=== PATIENT | female | born 1985 | race Caucasian/White ===

== ENCOUNTER 2023-09-12 12:41 | Outpatient (CLI) | payer OTHER, SELFPAY ==
[2023-09-12 13:03] LABS: Hematocrit 34.9 % (37.0-47.0); Hemoglobin 10.2 g/dL (12.0-15.0); Mean Corpuscular HGB Conc 29.2 g/dl (32-36); Mean Corpuscular Hemoglobin 23.4 pg (26-34); Mean Corpuscular Volume 80.2 fl (80-100); Platelet Count Result 398 k/mm3 (150-375); Red Blood Count 4.35 M/mm3 (4.2-5.4); Red Cell Distribution Width 17.7 % (11.5-14.5)
== END 2023-09-12 12:42 | disposition home or self-care (01) ==
PROVIDERS: PCP Internal Medicine; Visit Provider Obstetrics & Gynecology
DX: Z30.2 Encounter for sterilization (principal)
CPT/HCPCS: 36415; 85027

== ENCOUNTER 2023-09-19 01:26 | Day surgery (SDC) | payer OTHER, SELFPAY ==
[2023-09-04 15:44] VITALS: BMI 30.1
--- NOTE | 2023-09-04 16:00 | PC.NURSE ---
Report to the Outpatient Waiting Room, entrance under the green pavilion located off [facility], at time 6am on date 09/19/2023. Planned Procedure Time: 7:30am. Time changes happen often and if your time is changed the preop area will call you the afternoon before. - You and your visitor will be asked to self-screen and do not enter if you have any COVID symptoms. - A mask is optional within the hospital at this time. Patients may have clear liquids (water, carbonated beverages, clear teas, apple juice) until 3 hours prior to surgery with a maximum of 20 ounces. - No food from midnight until time of surgery Take the following medications with a SIP of water the morning of surgery: desvenlataxine, gabapentin DO NOT STOP ANY OF YOUR OTHER PRESCRIPTION MEDICATIONS PRIOR TO SURGERY ?EXCEPT THE FOLLOWING Please no make-up, nail lithuanian, hairspray, perfume, deodorant, or body powder the day of surgery. No jewelry (including any body piercings) or valuables the day of surgery, leave them at home. Please take a shower or bath the night before, or the morning of, surgery with an antibacterial soap. Wear comfortable, loose fitting clothing. Children are encouraged to wear pajamas. - Jewelry must be removed prior to entering the operating room. Rings and piercings that are not removed may be cut off. - The hospital will not accept responsibility for valuables. - Please leave all valuables, including medications, at home the day of surgery. If you are going home after surgery, a licensed explosives truck driver must drive you home. - NO public transportation without another adult if you receive anesthesia. - We recommend that an adult stay with you for 24 hours following discharge. - We also recommend that you do not drive, make important decision, drink alcoholic beverages, or take any drugs that were not prescribed by your health care provider for at least 24 hours after your discharge time. For Pediatric surgeries, we recommend two adults accompany the child home. Follow any additional instructions given to you from your surgeon. If you or anyone in your household have experienced Covid symptoms in the past week, please notify your surgeon or the nurse liaison at the phone number below for possible testing. Telephone instructions given to Marlene Worley and asked if any additional questions and then verbalized understanding. Patient advised to call surgeon office or pre surgery nurse liaison [phone] if any additional questions.
--- NOTE | 2023-09-16 15:34 | PM.IMHP ---
H&P: HPI History of Present Illness Date/Time: 09/16/23 15:34 38-year-old female 3 para 3003 presents for permanent sterilization. She is not currently using any type of contraception and does not desire any reversible forms though they have been discussed. Cycles are regular and consistent and not an issue for her. She has had 3 prior sections and a laparoscopic cholecystectomy, no other significant abdominal or pelvic surgeries. We have discussed the permanence failure rate increased risk of ectopic and regret and she strongly desires to proceed with permanent sterilization in the form of bilateral salpingectomy. Chief Complaint: Undesired fertility Review of Systems Review of Systems: All systems reviewed & are unremarkable except as noted in HPI and below PMFSH Past Medical History Medical History Abnormal Pap smear of cervix 2006- lgsil +HPV, 03/31/2008 Lgsil+HPV 2008- lgsil -hpv Anxiety Asthma Chlamydia Encounter for IUD insertion 10/01/05 Mirena insertion 05/14/12 Paragard insertion 08/13/13 Mirena insertion Encounter for IUD removal 04/08/06 Mirena removal 01/22/13 Paragard removal 01/28/14 Mirena removal Encounter for screening examination for sexually transmitted disease History of depression History of high cholesterol HSV-2 infection Sexually transmissible disease Trichomonas vaginalis (TV) infection Surgical History Surgical History History of delivery 03/28/05 primary c/s--cord wrapped 02/14/10 02/27/12 non-reassuring heart tones History of cholecystectomy 02/29/20 History of colposcopy with cervical biopsy 12/24/06 LGSIL--benign 04/13/08 hyperkeratosis LGSIL CIN1 History of incision and drainage 04/18/09 vulvar abscess 09/19/10 labial abscess Family History Family History Mother Diabetes mellitus Hypertension Colon cancer Skin cancer Heart disease Lupus erythematosus Grandparent Colon cancer Father Chronic obstructive lung disease Chronic hepatitis Social History Social History Smoking packs per day: 0.5 Smoking cigarettes per day: 10.0 Years smoked: 20 Smoking pack-years: 10.00 Smoking status: Current every day smoker Tobacco type: cigarettes Second hand tobacco smoke exposure: Yes Alcohol intake: unknown Alcohol use details: rarely Substance use: current Substance use type: marijuana Other substance usage details: Once every two days Last use: 09/04/2023 Do You Feel Safe in your Home?: Yes Lack of Transportation: No Lack of Food: Sometimes True Current Housing: I Have Housing Concerned About Future Housing: No Difficulty Paying Gas/Electric Bills: No Difficulty Paying for Meds: No Currently Unemployed: No Education: Associate Degree Difficulty w/ Childcare or Family Care: No Living arrangements: with family Additional living arrangements comments: with kids Occupation/Education: occupation 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 Gender identity (if verbalized by the patient): Female Sexual Orientation (if Verbalized by the Patient): Straight or Heterosexual Spiritual care concerns: No Meds Home Medications and Allergies Home Medications Medication Instructions Recorded Confirmed Type gabapentin 300 mg capsule 300 mg PO DAILY 02/24/20 09/05/23 History desvenlafaxine succinate 50 mg 50 mg PO DAILY 07/17/23 09/05/23 History tablet,extended release 24 hr (Pristiq) Allergies Allergy/AdvReac Type Severity Reaction Status Date / Time No Known Allergies Allergy Mild Verified 09/04/23 15:42 Exam Const: General: cooperative and healthy appearing Resp: Effort & Inspection: normal respiratory effort Auscultation:
[2023-09-19] VITALS (9 sets, daily range): BP systolic 118–130; BP diastolic 56–75; PULSE 60–99; RESP 12–16; TEMP 36.2–36.3; O2SAT 97–100; BMI 29.8
[2023-09-19] MEDS: LACTATED RINGERS 1,000 ML 30 ML IV CONT (06:40)
[2023-09-19] MEDS: SCOPOLAMINE 1 MG PATCH 1 PATCH TRANSDERM (06:56)
[2023-09-19] MEDS: KETOROLAC 15 MG/ML VIAL (*BKC) IV PUSH (06:56)
[2023-09-19] MEDS: ACETAMINOPHEN 500 MG TABLET 1000 MG PO (06:56)
--- NOTE | 2023-09-19 07:12 | WPDANESEPPF ---
Anes - Initial Pre Proc Eval Procedure: Operation Date: 09/19/23 07:30 Proposed Procedures p Bilateral Laparoscopic Salpingectomy - Chato Nice MD Date/Time: 09/19/23 07:12 Surgeon: Chato Nice MD Pre Op Diagnosis: Desire Sterilization Patient Data Age: 38 Gender: F Height: 1.6 m Weight: 77.11 kg Allergies Allergy/AdvReac Type Severity Reaction Status Date / Time No Known Allergies Allergy Mild Verified 09/04/23 15:42 Home Medications Medication Instructions Recorded Confirmed Type gabapentin 300 mg capsule 300 mg PO DAILY 02/24/20 09/05/23 History desvenlafaxine succinate 50 mg 50 mg PO DAILY 07/17/23 09/05/23 History tablet,extended release 24 hr (Pristiq) Patient hx anesthesia problems: none Family hx anesthesia problems: none Results Review: All pre-operative results and documents have been reviewed as part of the pre-operative evaluation. [facility] Past Medical History Medical History Abnormal Pap smear of cervix 2006- lgsil +HPV, 03/31/2008 Lgsil+HPV 2008- lgsil -hpv Anxiety Asthma Chlamydia Encounter for IUD insertion 10/01/05 Mirena insertion 05/14/12 Paragard insertion 08/13/13 Mirena insertion Encounter for IUD removal 04/08/06 Mirena removal 01/22/13 Paragard removal 01/28/14 Mirena removal Encounter for screening examination for sexually transmitted disease History of depression History of high cholesterol HSV-2 infection Sexually transmissible disease Trichomonas vaginalis (TV) infection Surgical History Surgical History History of delivery 03/28/05 primary c/s--cord wrapped 02/14/10 02/27/12 non-reassuring heart tones History of cholecystectomy 02/29/20 History of colposcopy with cervical biopsy 12/24/06 LGSIL--benign 04/13/08 hyperkeratosis LGSIL CIN1 History of incision and drainage 04/18/09 vulvar abscess 09/19/10 labial abscess Family History Family History Mother Diabetes mellitus Hypertension Colon cancer Skin cancer Heart disease Lupus erythematosus Grandparent Colon cancer Father Chronic obstructive lung disease Chronic hepatitis Social History Social History Smoking packs per day: 0.5 Smoking cigarettes per day: 10.0 Years smoked: 20 Smoking pack-years: 10.00 Smoking status: Current every day smoker Tobacco type: cigarettes Second hand tobacco smoke exposure: Yes Alcohol intake: unknown Alcohol use details: rarely Substance use: current Substance use type: marijuana Other substance usage details: Once every two days Last use: 09/04/2023 Do You Feel Safe in your Home?: Yes Lack of Transportation: No Lack of Food: Sometimes True Current Housing: I Have Housing Concerned About Future Housing: No Difficulty Paying Gas/Electric Bills: No Difficulty Paying for Meds: No Currently Unemployed: No Education: Associate Degree Difficulty w/ Childcare or Family Care: No Living arrangements: with family Additional living arrangements comments: with kids Occupation/Education: occupation 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
--- NOTE | 2023-09-19 07:25 | WPDHPUPDATE1 ---
History and Physical Update Update Date/Time: 09/19/23 07:25 History and Physical has been reviewed, including an updated exam of the patient. There are NO changes in the patient's condition. Risks, benefits, and alternatives have been discussed and questions answered. Patient agrees to proceed with procedure.
--- NOTE | 2023-09-19 08:10 | W.PM.PROC2 ---
Procedure Note - Detailed Date of Procedure 09/19/23 Pre-op Diagnosis Desire Sterilization Post-op Diagnosis Same Procedure Performed Laparoscopic bilateral salpingectomy Surgeon Chato Nice MD Anesthesia General Findings Uterus tubes ovaries without abnormality Description of Procedure Patient prepped and draped in usual manner for this procedure. Camera port was placed under direct visualization. Lateral ports were then also placed in the lower abdomen. Pelvis was evaluated with findings as noted above. Mesial salpinx was cauterized and cut using LigaSure and tubes removed without difficulty. There was no bleeding and this point the gas was allowed to escape trocars removed incisions approximated 4-0 Monocryl and the patient was sent to recovery room in stable condition. Estimated Blood Loss 10 Drains No Packing No Pathology Yes Complications No immediate complications Condition Stable Disposition PACU [facility] Billing Surgery - Charge Forward: Surgery Billing
[2023-09-19] MEDS: fentaNYL CITRATE INJ (*CRX) 100 MCG/2 ML VIAL 25 MCG IV PUSH ×4 (08:28→08:48)
[2023-09-19] MEDS: oxyCODONE HCL (*CRX) 5 MG TAB IR PO (09:38)
== END 2023-09-19 10:05 | disposition home or self-care (01) ==
PROVIDERS: PCP Internal Medicine; Visit Provider Obstetrics & Gynecology
PROC: (CPT 49320; principal; 2023-09-19 07:30)
DX: Z30.2 Encounter for sterilization (principal); N83.8 Other noninflammatory disorders of ovary, fallopian tube and broad ligament; F17.210 Nicotine dependence, cigarettes, uncomplicated; F12.90 Cannabis use, unspecified, uncomplicated; F41.9 Anxiety disorder, unspecified
CPT/HCPCS: 58661; 88302; A9270; J1100; J1885; J2250; J2405; J2704; J3010; J7120

== ENCOUNTER 2024-10-01 14:19 | Outpatient (CLI) | payer OTHER, SELFPAY ==
--- NOTE | ~2024-10-01 | MM_ITS ---
EXAMINATION: MM screening hieu BI w matilda HISTORY: Screening TECHNIQUE: Craniocaudal and mediolateral oblique 3-D tomosynthesis images were obtained and synthetic 2-D images were generated. CAD analysis was submitted and interpreted. COMPARISON: No prior mammogram is available for comparison at this institution. BREAST PARENCHYMAL COMPOSITION: Not Dense: The breasts are almost entirely fatty. FINDINGS: There is no mammographic evidence for malignancy in the left breast. There is a small mass in the upper outer quadrant of the right breast with increased density centrally, atypical for lymph node. No suspicious calcifications or architectural distortion. IMPRESSION: 1. Small right breast mass, upper outer quadrant, middle third. 2. Additional mammographic views and possible breast ultrasound are recommended. BI-RADS Category 0: Incomplete: Needs additional imaging evaluation. Reviewed, dictated and finalized at location A. IMPRESSION: 1. Small right breast mass, upper outer quadrant, middle third. 2. Additional mammographic views and possible breast ultrasound are recommended . BI-RADS Category 0: Incomplete: Needs additional imaging evaluation.
--- OUTSIDE RECORDS SUMMARY | 2024-10-01 15:31 | XMS_ITS | Clinical Summary ---
Author Organization [facility] Medical Office Building [facility] Address [address] [place] [address] Care Team Providers Care Assistant Warehouse Manager Name Role Phone Marbin Torrez MD Primary Care Provider [phone] Allergies No known active allergies Medications gabapentin (NEURONTIN) 300 mg capsule TK 1 C PO TID 09/23/2019 Active venlafaxine XR (EFFEXOR-XR) 150 mg 24 hr capsule TK 1 C PO QAM WF 09/23/2019 Active Active Problems Problem Noted Date Diagnosed Date Family hx of colon cancer 10/02/2019 Overview (10/02/2019): Added automatically from request for surgery [id number] Encounters Date Type Department Care Team Description 07/20/2024 Hospital Encounter [facility] [id number] [phone] Osmar Miranda, from Last 3 Months Surgical History Surgery Date Site/Laterality Comments SECTION x3 CHOLECYSTECTOMY WISDOM TOOTH EXTRACTION Medical History Medical History Date Comments Mass of colon with bleeding Depression Social History Tobacco Use Types Packs/Day Years Used Date Smoking Tobacco: Never Assessed AUDIT-C Answer Date Recorded Q1: How often do you have a drink containing alcohol? Monthly or less 10/02/2022 Q2: How many drinks containi ng alcohol do you have on a typical day when you are drinking? Patient does not drink Q3: How often do you have si x or more drinks on one occasion? Never 10/02/2022 Personal Safety Answer Date Recorded Have you ever been in or are you currently in a harmful physical or emotional relationship or is someone making you feel afraid or unsafe? Denies 10/02/2022 Comments Unknown Sex and Gender Information Value Date Recorded Sex Assigned at Not on file Legal Sex Female 2:38 PM CDT Gender Identity Not on file Sexual Orientation Not on file Obstetrics History Last Filed Vital Signs Vital Sign Reading Time Taken Comments Blood Pressure 98/65 10/02/2022 11:07 AM CDT Pulse 67 10/02/2022 11:07 AM CDT Temperature 36.5 C (97.7 F) 10/02/2022 10:42 AM CDT Respiratory Rate 15 10/02/2022 11:07 AM CDT Oxygen Saturation 100% 10/02/2022 11:07 AM CDT Inhaled Oxygen Concentration - - Weight 74.8 kg (165 lb) 09/19/2022 1:20 PM CDT Height 162.6 cm (5' 4 ) 09/19/2022 1:20 PM CDT Body Mass Index 28.32 09/19/2022 1:20 PM CDT Plan of Treatment Health Maintenance Due Date Last Done Comments Breast Cancer Screening-Mammogram 1984 Cervical Cancer Screening 1984 Depression Screening 1984 Hepatitis C Screening 1984 Varicella Vaccines (1 of 2 - 13+ 2-dose series) 1997 Hepatitis B Screening 2002 Regular Well Visit/Exam 18-64 2002 Influenza Vaccine (#1) 2024 DTaP/Tdap/Td Vaccine (2 - Td or Tdap) 03/24/2024 03/24/2014 HPV Vaccines Aged Out No longer eligi ble based on patient's age to complete this topic Pneumococcal vaccine <65 Aged Out No longer eligible based on patient's age to complete this topic Insurance [facility] Care Teams Assistant Warehouse Manager Relationship Specialty Start Date End Date Marbin Torrez MD [address] [place] [address] PCP - General Internal Medicine 09/20/22
--- OUTSIDE RECORDS SUMMARY | 2024-10-01 15:31 | XMS_ITS | Referral Summary ---
Author Organization [facility] Medical Office Building B Address [address] [place] [address] Care Team Providers Care Contract Designer Name Role Phone Marbin Torrez MD Primary Care Provider [phone] Encounters Date Type Department Care Team Description 07/20/2024 Hospital Encounter [facility] [address] [place] [address] Osmar Miranda, DO from Last 3 Months Allergies No known active allergies Medications gabapentin (NEURONTIN) 300 mg capsule TK 1 C PO TID 09/23/2019 Active venlafaxine XR (EFFEXOR-XR) 150 mg 24 hr capsule TK 1 C PO QAM WF 09/23/2019 Active Active Problems Problem Noted Date Diagnosed Date Family hx of colon cancer 10/02/2019 Overview (10/02/2019): Added automatically from request for surgery [id number] Social History Tobacco Use Types Packs/Day Years [...] on file Sexual Orientation Not on file Last Filed Vital Signs Vital Sign Reading [...] 09/19/2022 1:20 PM CDT Plan of Treatment Not on file Insurance [facility] Care Teams Contract Designer Relationship Specialty Start Date End Date Marbin Torrez MD [address] [place] [address] PCP - General Internal Medicine 09/20/22
--- OUTSIDE RECORDS SUMMARY | 2024-10-01 15:31 | XMS_ITS | Continuity of Care Document ---
Author Organization [facility]ly [facility] Address [address] [place] [address] [address] [place] [address] Phone Care Team Providers Care Hasher Machine Operator Name Role Phone [facility] Unavailable Unavail able Dallas Brock Unavailable Unavailable Advance Directives Directive Yes / No Effective Date File Name No Information Encounters Encounter Description Practice Location Reason(s) For Visit Diagnoses Date Provider Providers Copied on Encounter [facility], [address], [place], [place], [id number], [place] tel:[phone] [facility] No Information [facility] [address] [facility], [address], [place], [place], [id number] , [place]. tel:[phone] Referring Provider: Jed Mojica, [address] [place] [address] [address], [place], [address]. tel:[phone] sulting Provider: Dallas Brock, [address] [place] [address], [place], [address]. tel:[phone] Family History Family Member Type Diagnosis Age At Onset No Information Payers Payer name Insurance type Covered democrat ID Authoriza tion(s) No Information Social History Type Description Quantity Date Captured Comments Sex Female Smoking Status No Information Chief Complaint And Reason For Visit No Information Reason For Referral Reason For Referral No Information History Of Present Illness Encounter Date Complaint History Of Prese nt Illness No Information Functional Status Date Functional Assessmen t No Information Instructions Date Instruction Additional Infor mation No Information Assessments Type Assessment Date No Information Patient Care Teams Name Effective Dates (start - stop) Status Members No Information
--- OUTSIDE RECORDS SUMMARY | 2024-10-01 15:31 | XMS_ITS | Patient Health Record ---
Author Organization [facility] Address [address] [place] [address] Care Team Providers Care Catering Operations Manager Name Role Phone Julian Rivera Primary Care Provider Marbin Torrez Unavailable [phone] Allergies No Known Allergies Reason For Referral No Information Medications Medication SIG (Take, Route, Frequency, Duration) Notes Start Date End Date Status Aspirin 81 81 MG 1 tablet Orally Once a day Active Cholecalciferol 1.25 MG (16495 UT) 1 capsule Orally once per week for 90 days Active Atorvastatin Calcium 40 MG 1 tablet Oral ly Once a day for 30 days Active Isosorbide Mononitrate ER 30 MG 1 tablet in the morning Orally Once a day for 30 days Active Senna 8.6 MG 2 tablets at bedtime as needed Orally Once a day for 30 day(s) 06/14/2021 Active diazePAM 5 MG 1 tablet as needed f or panic attacks Orally Once a day for 15 days 07/28/2024 Active Desvenlafaxine Succinate ER 50 MG 1 tablet in the morning Orally Once a day for 90 days Active Phentermine HCl 37.5 MG 1 capsule Orally Once a day for 30 days 09/16/2024 Active Gabapentin 600 MG 1 tablet in the morn ing Orally Once a day for 90 days Active buPROPion HCl ER (XL) 300 MG 1 tablet in the morning Orally Once a day for 90 days Active Gabapentin 300 MG 1 tablet in the afternoon Orally Once a day for 90 days Active Social History Tobacco Use: Social History Observation Description Date Details (start date - stop date) Former Smoker NA - NA Sex Assigned At : Social History Observation Description Sex Assigned At Female Tobacco Control (Standard) Question Answer Notes Tobacco use: Former smoker Section Notes: Problems Problem Type SNOMED Code ICD Code Onset Dates Problem Status W/U Status Risk Notes Problem Tobacco user (430238047) Nicotine dependence, unspecified, uncomplicated (F17.200) Active confirmed Problem 63979929 Vitamin D deficiency (E55.9) Active confirmed Problem Generalized anxiety disorder (91212884) COREY (generalized anxiety disorder) (F41.1) 03/09/20 22 Active confirmed Problem Overweight (380034734) Over weight (E66.3) Active confirmed Problem 43233526 Chronic fatigue (R53.82) Active confirmed Problem Major depressive disorder (295755434) MDD (major depressive disorder) (F32.9) 03/09/20 22 Active confirmed Problem Grief (981209910) Grief (F43.20) Active confirm ed Problem 199483588301142 Obesity (BMI 30.0-34.9) (E66.9) Active confirmed Problem Obesity (364629304) Obesity (BMI 30-39.9) (E66.9) Active confirmed Problem Anxiety state (004344406) Anxiety disorder, unspecified type (F41.9) 03/09/20 22 Active confirmed Problem Major depression in remission (41094578) Major depression in remission (F32.5) Active confirmed Problem Tobacco use (320476532) Tobacco use disorder (F17.200) Active confirmed Problem Obesity (408418968) Obesity, unspecified classification, unspecified obesity type, unspecified whether serious comorbidity present (E66.9) Active confirmed Problem 637286802 Seasonal allergic rhinitis, unspecified trigger (J30.2) Active confirmed Vital Signs Heart Rate 75 /min 09/16/2024 Respiratory Rate 16 /min 09/16/2024 Oximetry 98 % 09/16/2024 Blood pressure diastolic 60 mm Hg 09/16/2024 Height 63 in 09/16/2024 Blood pressure systolic 108 mm Hg 09/16/2024 Weight 188.8 lbs 09/16/2024 BMI 33.44 kg/m2 09/16/2024 Encounters Encounter Location Date Provider Diagnosis [facility] [address] [place] [place] [address] 12/09/2023 Julian Rivera [address] [place] [address] 06/08/2024 Julian Rivera Major depression in remission F32.[address] [address] 07/22/2024 Julian Rivera [address] [address] 07/24/2024 Julian Rivera Anxiety disorder, unspecified type F41.[address] [address] 03/12/2024 Julian Rivera Major depression in remission F32.5 ; Grief F43.20 ; Chronic fatigue R53.82 and COREY (generalized anxiety disorder) F41.[address] [address] 09/16/2024 Marbin Torrez Over weight E66.3 an d Chest pain R07.[address] [address] 08/13/2024 Marbin Torrez Chest pain R07.9 ; Chronic constipation K59.09 ; Obesity (BMI 30-39.9) E66.9 ; Nicotine dependence, unspecified, uncomplicated F17.200 ; Dietary counseling Z71.3 and Nutritional counseling Z71.[address] [address] 06/17/2024 Julian Rivera Major depression in remission F32.5 ; COREY (generalized anxiety disorder) F41.1 and Chronic fatigue R53.[address] [address] 12/16/2023 Julian Rivera Major depression in remission F32.5 ; COREY (generalized anxiety disorder) F41.1 and Chronic fatigue R53.[address] [address] 08/18/2024 Julian Rivera Major depression in remission F32.5 ; COREY (generalized anxiety disorder) F41.1 ; Vitamin D deficiency E55.9 and Chronic fatigue R53.82 Assessments Encounter Date Diagnosis (ICD Code) Assessment Notes Treatment Notes Treatment Clinical Notes Section Notes 03/12/2024 Grief (ICD-10 - F43.20) Client denies depression and rates her PHQ 9 at zero though states she is having intense grief due to recent of her best friend. Discussed resources of grief therapy, crisis line. Client requests Wellbutrin increase to aide with fatigue. No other treatment plan changes needed. Client requests three month f/u and states will call for earlier f/u if needed. 03/12/2024 Major depression in remission (ICD-10 - F32.5) Client denies depression and rates her PHQ 9 at zero though states she is having intense grief due to recent of her best friend. Discussed resources of grief therapy, crisis line. Client requests Wellbutrin increase to aide with fatigue. No other treatment plan changes needed. Client requests three month f/u and states will call for earlier f/u if needed. 06/08/2024 Major depression in remission (ICD-10 - F32.5) 07/24/2024 Anxiety disorder, unspecified type (ICD-10 - F41.9) 08/13/2024 Chest pain (ICD-10 - R07.9) WITH NL CORONARIES 08/13/2024 Chronic constipation (ICD-10 - K59.09) 12/16/2023 Major depression in remission (ICD-10 - F32.5) Client doing well overall with controlled depression and anxiety. However, client continues to c/o fatigue. Did not f/u with primary care in regard to low iron lab results nor start supplementat ion. Discussed this with client and suggested client start taking MVI fortified with iron and make apt with PCP. Discussed a trial of low dose bupropion to assist with fatigue and client would like to try this. No other treatment plan changes. 08/18/2024 Major depression in remission (ICD-10 - F32.5) Client doing well on current tx plan and does not want changes at this time. 06/17/2024 Major depression in remission (ICD-10 - F32.5) Client doing well. Has had emotional blunting and fatigue greatly improved by bupropion. No changes needed. Encouraged client to set up PCP appt (has not seen in over 2 years). Is taking daily multivitamin and vitamin D supplement a few times a week. Discussed if has not seen PCP by next appt this provider will write for yearly blood work. 09/16/2024 Chest pain (ICD-10 - R07.9) SMALL CORONARIES W/O OBSTRUCTION TO FLOW BUT WITH PRESUMED CORONARY SPASM 09/16/2024 Over weight (ICD-10 - E66.3) DISCUSSED ADDING RESISTANCE TRAINING TO HER CARDIO. DISCUSSED WIEGHTS VS BODY WEIGHT EXERCISES. 06/17/2024 COREY (generalized anxiety disorder) (ICD-10 - F41.1) Client doing well. Has had emotional blunting and fatigue greatly improved by bupropion. No changes needed. Encouraged client to set up PCP appt (has not seen in over 2 years). Is taking daily multivitamin and vitamin D supplement a few times a week. Discussed if has not seen PCP by next appt this provider will write for yearly blood work. 08/18/2024 COREY (generalized anxiety disorder) (ICD-10 - F41.1) Client doing well on current tx plan and does not want changes at this time. 03/12/2024 Chronic fatigue (ICD-10 - R53.82) Client denies depression and rates her PHQ 9 at zero though states she is having intense grief due to recent of her best friend. Discussed resources of grief therapy, crisis line. Client requests Wellbutrin increase to aide with fatigue. No other treatment plan changes needed. Client requests three month f/u and states will call for earlier f/u if needed. 08/13/2024 Obesity (BMI 30-39.9) (ICD-10 - E66.9) INFO SENT ON MEDITERRANEAN DIET. CONTINUE LOW IMPACT EXERCISE 12/16/2023 COREY (generalized anxiety disorder) (ICD-10 - F41.1) Client doing well overall with controlled depression and anxiety. However, client continues to c/o fatigue. Did not f/u with primary care in regard to low iron lab results nor start supplementat ion. Discussed this with client and suggested client start taking MVI fortified with iron and make apt with PCP. Discussed a trial of low dose bupropion to assist with fatigue and client would like to try this. No other treatment plan changes. 12/16/2023 Chronic fatigue (ICD-10 - R53.82) Client doing well overall with controlled depression and anxiety. However, client continues to c/o fatigue. Did not f/u with primary care in regard to low iron lab results nor start supplementat ion. Discussed this with client and suggested client start taking MVI fortified with iron and make apt with PCP. Discussed a trial of low dose bupropion to assist with fatigue and client would like to try this. No other treatment plan changes. 08/13/2024 Nicotine dependence, unspecified, uncomplicated (ICD-10 - F17.200) 03/12/2024 COREY (generalized anxiety disorder) (ICD-10 - F41.1) Client denies depression and rates her PHQ 9 at zero though states she is having intense grief due to recent of her best friend. Discussed resources of grief therapy, crisis line. Client requests Wellbutrin increase to aide with fatigue. No other treatment plan changes needed. Client requests three month f/u and states will call for earlier f/u if needed. 08/18/2024 Vitamin D deficiency (ICD-10 - E55.9) Client doing well on current tx plan and does not want changes at this time. 06/17/2024 Chronic fatigue (ICD-10 - R53.82) Client doing well. Has had emotional blunting and fatigue greatly improved by bupropion. No changes needed. Encouraged client to set up PCP appt (has not seen in over 2 years). Is taking daily multivitamin and vitamin D supplement a few times a week. Discussed if has not seen PCP by next appt this provider will write for yearly blood work. 08/18/2024 Chronic fatigue (ICD-10 - R53.82) Client doing well on current tx plan and does not want changes at this time. 08/13/2024 Dietary counseling (ICD-10 - Z71.3) 08/13/2024 Nutritional counseling (ICD-10 - Z71.3) 12/16/2023 Other Discussed sleep hygiene and caffeine intake with encouragement to limit electronic devices an hour before bed and to limit caffeine after 3:00pm. Exercise benefits for mood and health discussed. Psychoeducation regarding psychiatric illness provided. Client was educated about risks and benefits of medication, alternatives to medication, off label uses of medication, suicidal ideation with SSRIs, self-administrat ion and compliance with medication along with how to safely store medication. Verbal informed consent obtained. Client agrees to return sooner if symptoms worsen or if suicidal or homicidal ideations occur. Client has the phone number to the 24-hour crisis line at [facility]. Questions addressed. Client verbalized understanding of all information and is agreeable to treatment plan. Client doing well overall with controlled depression and anxiety. However, client continues to c/o fatigue. Did not f/u with primary care in regard to low iron lab results nor start supplementat ion. Discussed this with client and suggested client start taking MVI fortified with iron and make apt with PCP. Discussed a trial of low dose bupropion to assist with fatigue and client would like to try this. No other treatment plan changes. 03/12/2024 Other Discussed sleep hygiene and caffeine intake with encouragement to limit electronic devices an hour before bed and to limit caffeine after 3:00pm. Exercise benefits for mood and health discussed. Psychoeducation regarding psychiatric illness provided. Client was educated about risks and benefits of medication, alternatives to medication, off label uses of medication, suicidal ideation with SSRIs, self-administrat ion and compliance with medication along with how to safely store medication. Verbal informed consent obtained. Client agrees to return sooner if symptoms worsen or if suicidal or homicidal ideations occur. Client has the phone number to the 24-hour crisis line at [facility]. Questions addressed. Client verbalized understanding of all information and is agreeable to treatment plan. Client denies depression and rates her PHQ 9 at zero though states she is having intense grief due to recent of her best friend. Discussed resources of grief therapy, crisis line. Client requests Wellbutrin increase to aide with fatigue. No other treatment plan changes needed. Client requests three month f/u and states will call for earlier f/u if needed. 06/17/2024 Other Discussed sleep hygiene and caffeine intake with encouragement to limit electronic devices an hour before bed and to limit caffeine after 3:00pm. Exercise benefits for mood and health discussed. Psychoeducation regarding psychiatric illness provided. Client was educated about risks and benefits of medication, alternatives to medication, off label uses of medication, suicidal ideation with SSRIs, self-administrat ion and compliance with medication along with how to safely store medication. Verbal informed consent obtained. Client agrees to return sooner if symptoms worsen or if suicidal or homicidal ideations occur. Client has the phone number to the 24-hour crisis line at [facility]. Questions addressed. Client verbalized understanding of all information and is agreeable to treatment plan. Client doing well. Has had emotional blunting and fatigue greatly improved by bupropion. No changes needed. Encouraged client to set up PCP appt (has not seen in over 2 years). Is taking daily multivitamin and vitamin D supplement a few times a week. Discussed if has not seen PCP by next appt this provider will write for yearly blood work. 08/18/2024 Other Discussed sleep hygiene and caffeine intake with encouragement to limit electronic devices an hour before bed and to limit caffeine after 3:00pm. Exercise benefits for mood and health discussed. Psychoeducation regarding psychiatric illness provided. Client was educated about risks and benefits of medication, alternatives to medication, off label uses of medication, suicidal ideation with SSRIs, self-administrat ion and compliance with medication along with how to safely store medication. Verbal informed consent obtained. Client agrees to return sooner if symptoms worsen or if suicidal or homicidal ideations occur. Client has the phone number to the 24-hour crisis line at [facility]. Questions addressed. Client verbalized understanding of all information and is agreeable to treatment plan. Client doing well on current tx plan and does not want changes at this time. Plan Of Treatment Pending Test Test Name Order Date AST (SGOT) 02/08/2016 Future Test Test Name Order Date Vitamin B12 and Folate 07/10/2023 Iron and TIBC 07/10/2023 CBC With Differential/Platelet 4 Vitamin D, 25-Hydroxy 07/10/2023 TSH+Free T4 07/10/2023 CMP 14 Comprehensive Metabolic Panel* Hemoglobin A1c 07/10/2023 Insurance Providers Payer Name Payer Address Payer Phone Subscriber Number Group Number Insured Name Patient Relationship to Insured Coverage Start Date Coverage End Date [facility] Att Claims Department [address] [place] [id number] [phone] [id number] Marlene Worley Self - patient is the insured 1 [facility] Claims Department [address] [place] [phone] [id number] Marlene Worley Self - patient is the insured 6 8 [facility] Attn Claims Department [address] [place] [phone] [id number] Marlene Worley Self - patient is the insured 8 8 MEDICAID [address] [place] [address] [id number] Marlene Worley Self - patient is the insured 8 9 [facility] Attn Claims Department [address] [facility] [place] [address] [phone] [id number] Marlene Worley Self - patient is the insured 0 [facility] Attn Claims Department [address] [place] [address] [phone] [id number] Marlene Worley Self - patient is the insured 1 Medical (General) History Medical History History ICD Code MDD (major depressive disorder) Obesity (BMI 30.0-34.9) Vitamin D deficiency Anxiety disorder, unspecified type Surgical History Surgery Date(Month/Year) cholestyectomy 02/2020 Hospitalization History Reason Date(Month/Year) [facility] for anxiety 2000
--- OUTSIDE RECORDS SUMMARY | 2024-10-01 15:31 | XMS_ITS | Encounter Summary ---
Author Organization [facility] Healthcare Address [address] [place] [address] Care Team Providers Care Computer Support Specialist Name Role Phone Marbin Torrez MD Primary Care Provider [phone] Encounter Details Date Type Department Care Team (Late st Contact Info) Description 07/20/2024 Hospital Encounter [facility] [address] [place], [place] [id number] [place] [id number] [address] Social History Tobacco Use Types Packs/Day Years [...] on file Sexual Orientation Not on file documented as of this encounter Plan of Treatment Not on file documented as of this encounter Visit Diagnoses Not on filedocumented in this encounter Care Teams Computer Support Specialist Relationship Specialty Start Date End Date Marbin Torrez MD [address] [place] [address] [place] [address] PCP - General Internal Medicine 09/20/22 documented as of this encounter
--- OUTSIDE RECORDS SUMMARY | 2024-10-01 15:31 | XMS_ITS | CONTINUITY OF CARE DOCUMENT ---
Author Name sanjay grace Address Unknown Organization [facility] Address [address] [place] [address] Phone [phone] Care Team Providers Care Lastex Thread Winder Name Role Phone Dahiana Davenport MD Unavailable [phone] Dahiana Davenport MD Unavailable [phone] PROBLEMS Condition Status Date Provider Notes Chest pain active Maria Ines Beverly NP ALLERGIES No Known Drug Allergies HISTORY OF MEDICATION USE Medication Status Instructions Dates Provider Indications Com ments aspirin 81 mg tablet,delayed release (DR/EC) active Take 1 tablet by mouth once a day Maria Ines Beverly NP isosorbide mononitrate 30 mg tablet extended release 24 hr active Take 1 tablet by mouth once a day Maria Ines Beverly NP atorvastatin 40 mg tablet active TAKE 1 TABLET BY MOUTH EVERY NIGHT DUE FOR FOLLOW UP Maria Ines Beverly NP INSURANCE PROVIDERS Payer name Policy type / Coverage type [facility] [place] (2) Medicaid [id number]
--- OUTSIDE RECORDS SUMMARY | 2024-10-01 15:31 | XMS_ITS | Clinical Summary ---
Author Organization [facility] Address [address] [place] [address] Care Team Providers Care Sensor Specialist Name Role Phone Unavailable Primary Care Provider Unavailabl e Source Comments [facility],non-owned Affiliates and Associated Physician Practices is amultiple site organization consisting of ambulatory clinics and hospital sitesin [place], [place], [place] and [place]. This disclosure is being madepursuant to the Care Everywhere program and may not contain all information available regarding this patient. Last updated 18.[facility] Allergies No known active allergies Medications * Be aware that medications may not be up to date on this document. Alwaysverify current medications with the patient. Venlafaxine HCl (EFFEXOR XR PO) Acti ve GABAPENTIN PO Active triamcinolone acetonide (KENALOG) 0.1 % cream Apply to affected area 3 times daily 30 g 12/23/2019 Active Social History Tobacco Use Types Packs/Day Years Used Date Smoking Tobacco: Every Day Smokeless Tobacco: Never Comments Unknown Sex and Gender Information Value Date Recorded Sex Assigned at Not on file Legal Sex Female [address] Gender Identity Not on file Sexual Orientation Not on file Last Filed Vital Signs Vital Sign Reading Time Taken Comments Blood Pressure 118/62 12/23/2019 2:04 PM CDT Pulse 76 12/23/2019 2:04 PM CDT Temperature 37.1 C (98.7 F) 12/23/2019 2:04 PM CDT Respiratory Rate 15 12/23/2019 2:04 PM CDT Oxygen Saturation 97% 12/23/2019 2:04 PM CDT Inhaled Oxygen Concentration - - Weight 83 kg (183 lb) 12/23/2019 2:04 PM CDT Height 160 cm (5' 3 ) 12/23/2019 2:04 PM CDT Body Mass Index 32.42 12/23/2019 2:04 PM CDT Plan of Treatment Health Maintenance Due Date Last Done Comments LIPID TESTING 1984 MAMMOGRAM 1984 PAP SMEAR 1984 HIV SCREENING 08/13/1999 HEPATITIS C SCREENING 08/08/2002 DTAP/TDAP/TD VACCINES (1 - Tdap) 08/13/2003 HEPATITIS B VACCINE (1 of 3 - 19+ 3-dose series) 08/13/2003 PNEUMOCOCCAL VACCINE (1 of 2 - PCV) 08/13/2003 COVID-19 VACCINE (1 - 2023-2 5 season) 2024 DEPRESSION SCREENING 06/10/2024 INFLUENZA VACCINE (Season Ended) 2025 ZOSTER VACCINE (1 of 2) 2034 HIB VACCINE Aged Out No longer eligi ble based on patient's age to complete this topic HPV VACCINE Aged Out No longer eligi ble based on patient's age to complete this topic MENINGOCOCCAL (Group B) VACC INE SHARED DECISION-MAKING Aged Out No longer eligibl e based on patient's age to complete this topic MENINGOCOCCAL GROUPS A/C/Y/W VACCINE Aged Out No longer eligible b ased on patient's age to complete this topic Insurance [facility] SELF PAY NO INSURANCE Member Subscriber Plan / Payer (Ef fective for All Dates) Name:Meir Marlene R Member ID:Not on file Relation to Subscriber:Not on file Name:MARLENE MUNOZ Subscriber ID:Not on file (Home) Address: [address] [place] [address] Payer ID:Not on file Group ID:Not on file Type:Self Pay Address: [place], [place] [facility] SELF PAY NO INSURANCE Member Subscriber Plan / Payer (Ef fective for All Dates) Name:Meir Marlene R Member ID:Not on file Relation to Subscriber:Not on file Name:MUNOZMARLENE RIOS Subscriber ID:Not on file (Home) Address: [address] [place] [address] Payer ID:Not on file Group ID:Not on file Type:Self Pay Address: [place], [place] [facility] SELF PAY NO INSURANCE Member Subscriber Plan / Payer (Ef fective for All Dates) Name:Marlene Munoz Member ID:Not on file Relation to Subscriber:Not on file Name:MARLENE MUNOZ Subscriber ID:Not on file (Home) Address: [address] [place] [address] Payer ID:Not on file Group ID:Not on file Type:Self Pay Address: [place], [place]
== END 2024-10-01 14:20 | disposition home or self-care (01) ==
PROVIDERS: PCP Internal Medicine; Visit Provider Student in an Organized Health Care Education/Training Program
DX: Z12.31 Encounter for screening mammogram for malignant neoplasm of breast (principal); R92.8 Other abnormal and inconclusive findings on diagnostic imaging of breast
CPT/HCPCS: 77063; 77067

== ENCOUNTER 2025-01-20 13:22 | Outpatient (CLI) | payer OTHER, SELFPAY ==
--- NOTE | ~2025-01-20 | MMUS_ITS ---
EXAMINATION: MM diagnostic hieu RT w matilda, US breast RT limited HISTORY: Follow-up right breast mass TECHNIQUE: Additional 3-D tomosynthesis images of the right breast were performed and synthetic 2-D i mages were generated. CAD analysis was submitted and interpreted. High resolution Limited right breas t ultrasound was performed. COMPARISON: 10/01/2024 BREAST PARENCHYMAL COMPOSITION: Not dense: There are scattered areas of fibroglandular density. FINDINGS: MAMMOGRAPHIC FINDINGS: There is a small low-density mass mid lateral aspect of the right breast, middle third. ULTRASOUND: Limited right breast ultrasound at 9:00, 4 cm from the nipple there is a 3 mm cyst corresponding to t he mammographic finding. No other masses are identified. IMPRESSION: 1. Benign 3 mm right breast cysts at 9:00, 4 cm from the nipple. No evidence for malignancy. 2. Routine yearly screening mammogram and regular clinical breast examination are recommended. BI-RADS Category 2: Benign finding(s). Reviewed, dictated and finalized at location A. IMPRESSION: 1. Benign 3 mm right breast cysts at 9:00, 4 cm from the nipple. No evidence fo r malignancy. 2. Routine yearly screening mammogram and regular clinical breast examination a re recommended. BI-RADS Category 2: Benign finding(s).
--- OUTSIDE RECORDS SUMMARY | 2025-01-20 13:24 | XMS_ITS ---
Author Organization [facility] Address [address] [place] [address] Care Team Providers Care Rating Clerk Name Role Phone Julian Rivera Primary Care Provider Marbin Torrez Unavailable [phone] REASON FOR VISIT f/u, last seen 09/16/24 Social History Sex Assigned At : Social History Observation Description Sex Assigned At Female Encounters Encounter Location Date Provider Diagnosis [address] [place] [address] 12/25/2024 Marbin Torrez Plan Of Treatment No Information Progress Notes * Marlene MUNOZDOB:1985 (39 yo F)Acc No.[id number]:12/25/2024 UNLOCKED PROGRESS NOTE Progress Notes Patient: Marlene WAITE Provider: Ibeth Torrez :1985 A ge:39 Y S ex:Female Date:12/25/2024 Address:[facility] [place] [facility] Pcp:Julian Rivera Subjective: * Chief Complaints: * 1 . F/u, last seen 09/16/24. * Medical History: Objective: * Vitals: Assessment: Plan: * Treatment: * * Electronic signature of Santana Torrez , [id number] on 01/20/2025 at 01:24 PM CDT Sign off status: Pending * Provider: Ibeth Torrez Date: 12/25/2024 Generated for Trenton baca/Derekc/eTransmitting on: 0 01/20/2025 01:24 PM CDT
--- OUTSIDE RECORDS SUMMARY | 2025-01-20 13:24 | XMS_ITS | Continuity of Care Document ---
Author Organization [facility] Address [address] [place] [address] [address] [place] [address] Phone Care Team Providers Care Tank Builder And Erector Name Role Phone [facility] Unavailable Unavail able Dallas Brock Unavailable Unavailable Advance Directives Directive Yes / No Effective Date File Name No Information Encounters Encounter Description Practice Location Reason(s) For Visit Diagnoses Date Provider Providers Copied on Encounter [facility], [address], [place], [place], [id number], [place] tel:[phone] [facility] No Information [facility] [address] [facility], [address], [place], [place], [address] , [place]. tel:[phone] Referring Provider: Jed Mojica, [address] [place] [address] [address], [place], [address]. tel:[phone] sulting Provider: Dallas Brock, [address] [place] [address], [place], [address]. tel:[phone] Family History Family Member Type Diagnosis Age At Onset No Information Payers Payer name Insurance type Covered libertarian ID Authoriza tion(s) No Information Social History [...]
--- OUTSIDE RECORDS SUMMARY | 2025-01-20 13:25 | XMS_ITS | Clinical Summary ---
Author Organization [email or web address] Address [address] [place] [address] Care Team Providers Care Solar Mechanical Engineer Name Role Phone Unavailable Primary Care Provider Unavailabl e Source Comments [email or web address],non-owned Affiliates and Associated Physician Practices is amultiple site organization consisting of ambulatory clinics and hospital sitesin [place], [place] and [place]. This disclosure is being madepursuant to the Care Everywhere program and may not contain all information available regarding this patient. 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 Gender Identity Not on file Sexual Orientation [...] 2:04 PM CDT Height 160 cm (5' 3) 12/23/2019 2:04 PM CDT Body Mass Index 32.42 12/23/2019 2:04 PM CDT Plan of Treatment Health Maintenance Due Date Last Done Comments LIPID TESTING 1985 MAMMOGRAM 1985 HIV SCREENING 08/13/1999 HEPATITIS C SCREENING 08/08/2002 DTAP/TDAP/TD VACCINES (1 - Tdap) 08/13/2003 HEPATITIS B VACCINE (1 of 3 - 19+ 3-dose series) 08/13/2003 PNEUMOCOCCAL VACCINE (1 of 2 - PCV) 08/13/2003 PAP SMEAR 2005 HPV VACCINE (1 - 3-dose SCDM series) 08/13/2011 COVID-19 VACCINE (1 - 2023-2 5 season) 2024 DEPRESSION SCREENING 06/10/2024 INFLUENZA VACCINE (#1) 2025 ZOSTER VACCINE (1 of 2) 2034 HIB VACCINE Aged Out No longer eligi ble based on patient's age to complete this topic MENINGOCOCCAL (Group B) VACC INE SHARED DECISION-MAKING Aged Out No longer eligibl e based on patient's age to complete this topic MENINGOCOCCAL GROUPS A/C/Y/W VACCINE Aged Out No longer eligible b ased on patient's age to complete this topic Insurance [facility] SELF PAY NO INSURANCE Member Subscriber Plan / Payer (Ef fective for All Dates) Name:Marlene Munoz R Member ID:Not on file Relation to Subscriber:Not on file Name:MUNOZMARLENE Subscriber ID:Not on file (Home) Address: [address] [place] [address] Payer ID:Not on file Group ID:Not on file Type:Self Pay Address: [place], [place] [facility] SELF PAY NO INSURANCE Member Subscriber Plan / Payer (Ef fective for All Dates) Name:MunozMarlene haas R Member ID:Not on file Relation to Subscriber:Not on file Name:MARLENE MUNOZ Subscriber ID:Not on file (Home) Address: [address] [place] [address] Payer ID:Not on file Group ID:Not on file Type:Self Pay Address: [place], [place] [facility] SELF PAY NO INSURANCE Member Subscriber Plan / Payer (Ef fective for All Dates) Name:Marlene Munoz Member ID:Not on file Relation to Subscriber:Not on file Name:MARLENE MUNOZ Subscriber ID:Not on file (Home) Address: [address] [place] [address] Payer ID:Not on file Group ID:Not on file Type:Self Pay Address: [place], [place]
--- OUTSIDE RECORDS SUMMARY | 2025-01-20 13:25 | XMS_ITS | Patient Health Record ---
Author Organization [facility] Address [address] [place] [address] Care Team Providers Care Supervisor [place] Name Role Phone Julian Rivera Primary Care Provider Marbin Torrez Unavailable [phone] Allergies No Known Allergies Results Component Value Reference Range Notes Diagnostic Mammogram with po ssible ultrasound - right breast Reviewed date:11/19/2024 10:21:55 AM Interpretation: Performing Lab: Notes/Report: Reason For Referral Reason ENLARGING SKIN LESIO N LEFT THIGH Diagnosis 1 Skin lesion (L98.9) Referral Organization [facility] Referring Provider First Name Marbin Referring Provider Last Name Shan Referring Provider Speciality Internal M edicine Referred Provider Specialty Dermatology General Notes Shalonda COLE, Inez Cristina 01:31:28 PM > Clinical Notes [facility], [address] [place] [address], [address] , [facility], , fax [phone] Referral Priority Routine Medications Medication SIG (Take, Route, Frequency, Duration) Notes Start Date End Date Status Atorvastatin Calcium 40 MG 1 tablet Oral ly Once a day; Duration: 30 days Active Cholecalciferol 1.25 MG (53649 UT) 1 capsule Orally once per week; Duration: 90 days Active Senna 8.6 MG 2 tablets at bedtime as needed Orally Once a day; Duration: 30 day(s) 06/14/2021 Active Aspirin 81 81 MG 1 tablet Orally Once a day Active Isosorbide Mononitrate ER 30 MG 1 tablet in the morning Orally Once a day; Duration: 30 days Active diazePAM 5 MG 1 tablet as needed f or panic attacks Orally Once a day; Duration: 15 days 07/28/2024 Active buPROPion HCl ER (XL) 300 MG 1 tablet in the morning Orally Once a day; Duration: 90 days Active Gabapentin 600 MG 1 tablet in the morn ing Orally Once a day; Duration: 90 days Active Gabapentin 300 MG 1 capsule in the afternoon Once a day; Duration: 90 days Active Desvenlafaxine Succinate ER 50 MG 1 tablet in the morning Orally Once a day; Duration: 90 days Active Social History Tobacco Use: Social History Observation Description Date Details (start date - stop date) Light tobacco s moker NA - NA Sex Assigned At : Social History Observation Description Sex Assigned At Female Tobacco Control (Standard) Question Answer Notes Tobacco use: Light tobacco smoker Additional Findings: Tobacco user Trivia l cigarette smoker (less than 1 cig/day) Additional Findings: Tobacco non-user Aggressive nonsmoker Section Notes: Problems Problem Type SNOMED Code ICD Code Onset Dates Problem Status W/U Status Risk Notes Problem Tobacco user (117967878) Nicotine dependence, unspecified, uncomplicated (F17.200) Active confirmed Problem Vitamin D deficiency (63630927) Vitamin D deficiency (E55.9) Active confirmed Problem Generalized anxiety disorder (47483060) COREY (generalized anxiety disorder) (F41.1) 03/09/20 22 Active confirmed Problem Iron deficiency anemia (57245059) Iron deficiency anemia (D50.9) Active confirmed Problem Overweight (676999155) Over weight (E66.3) Active confirmed Problem Chronic fatigue syndrome (42516567) Chronic fatigue (R53.82) Active confirmed Problem Major depressive disorder (772468060) MDD (major depressive disorder) (F32.9) 03/09/20 22 Active confirmed Problem Grief (841403611) Grief (F43.20) Active confirm ed Problem Obese class I (finding) (721501921926613) Obesity (BMI 30.0-34.9) (E66.9) Active confirmed Problem Obesity (541151385) Obesity (BMI 30-39.9) (E66.9) Active confirmed Problem Anxiety state (940417264) Anxiety disorder, unspecified type (F41.9) 03/09/20 22 Active confirmed Problem Hyperlipidaemia (82160708) Hyperlipidemia, unspecified hyperlipidemia type (E78.5) Active confirmed Problem Major depression in remission (84746476) Major depression in remission (F32.5) Active confirmed Problem Tobacco use (473181050) Tobacco use disorder (F17.200) Active confirmed Problem Obesity (618364940) Obesity, unspecified classification, unspecified obesity type, unspecified whether serious comorbidity present (E66.9) Active confirmed Problem Seasonal allergic rhinitis (441713575) Seasonal allergic rhinitis, unspecified trigger (J30.2) Active confirmed Vital Signs Heart Rate 78 /min 01/06/2025 Respiratory Rate 16 /min 01/06/2025 Blood pressure diastolic 62 mm Hg 01/06/2025 Oximetry 99 % 01/06/2025 Height 63 in 01/06/2025 Blood pressure systolic 126 mm Hg 01/06/2025 Weight 184.0 lbs 01/06/2025 BMI 32.59 kg/m2 01/06/2025 Encounters Encounter Location Date Provider Diagnosis [address] [address] 03/12/2024 Julian Rivera Major depression in remission F32.5 ; Grief F43.20 ; Chronic fatigue R53.82 and COREY (generalized anxiety disorder) F41.[address] [address] 06/17/2024 Julian Rivera Major depression in remission F32.5 ; COREY (generalized anxiety disorder) F41.1 and Chronic fatigue R53.[address] [address] 08/13/2024 Marbin Torrez Chest pain R07.9 ; Chronic constipation K59.09 ; Obesity (BMI 30-39.9) E66.9 ; Nicotine dependence, unspecified, uncomplicated F17.200 ; Dietary counseling Z71.3 and Nutritional counseling Z71.[address] [address] 08/18/2024 Julian Rivera Major depression in remission F32.5 ; COREY (generalized anxiety disorder) F41.1 ; Vitamin D deficiency E55.9 and Chronic fatigue R53.[address] [address] 09/16/2024 Marbin Torrez Over weight E66.3 an d Chest pain R07.[address] [address] 12/29/2024 Julian Rivera Major depression in remission F32.5 and COREY (generalized anxiety disorder) F41.[address] [address] 01/06/2025 Marbin Torrez Chronic constipation K59.09 ; Skin lesion L98.9 ; Hyperlipidemia, unspecified hyperlipidemia type E78.5 ; Iron deficiency anemia D50.9 ; Proteinuria of undiagnosed cause R80.9 and Glycosuria R81 [address] [address] 06/08/2024 Julian Rivera Major depression in remission F32.[address] [address] 07/22/2024 Julian Rivera [address] [address] 07/24/2024 Julian Rivera Anxiety disorder, unspecified type F41.[address] [address] 10/08/2024 Julian Rivera Abnormal mammogram o f right breast R92.[address] [address] 12/18/2024 Julian Rivera Major depression in remission F32.[address] [address] 12/22/2024 Julian Rivera Major depression in remission F32.5 Assessments Encounter Date Diagnosis (ICD Code) Assessment Notes Treatment Notes Treatment Clinical Notes Section Notes 10/08/2024 Abnormal mammogram of right breast (ICD-10 - R92.8) 12/18/2024 Major depression in remission (ICD-10 - F32.5) 12/22/2024 Major depression in remission (ICD-10 - F32.5) 08/18/2024 Major depression in remission (ICD-10 - F32.5) Client doing well on current tx plan and does not want changes at this time. 09/16/2024 Chest pain (ICD-10 - R07.9) SMALL CORONARIES W/O OBSTRUCTION TO FLOW BUT WITH PRESUMED CORONARY SPASM 09/16/2024 Over weight (ICD-10 - E66.3) DISCUSSED ADDING RESISTANCE TRAINING TO HER CARDIO. DISCUSSED WIEGHTS VS BODY WEIGHT EXERCISES. 12/29/2024 Major depression in remission (ICD-10 - F32.5) 01/06/2025 Skin lesion (ICD-10 - L98.9) 01/06/2025 Chronic constipation (ICD-10 - K59.09) 03/12/2024 Grief (ICD-10 - F43.20) Client denies [...] Major depression in remission (ICD-10 - F32.5) 06/17/2024 Major depression in remission (ICD-10 - [...] provider will write for yearly blood work. 07/24/2024 Anxiety disorder, unspecified type (ICD-10 - F41.9) 08/13/2024 Chest pain (ICD-10 - R07.9) WITH NL CORONARIES 08/13/2024 Chronic constipation (ICD-10 - K59.09) 08/13/2024 Obesity (BMI 30-39.9) (ICD-10 - E66.9) INFO SENT ON MEDITERRANEAN DIET. CONTINUE LOW IMPACT EXERCISE 03/12/2024 Chronic fatigue (ICD-10 - R53.82) Client [...] call for earlier f/u if needed. 06/17/2024 COREY (generalized anxiety disorder) (ICD-10 - [...] provider will write for yearly blood work. 01/06/2025 Hyperlipidemia, unspecified hyperlipidemia type (ICD-10 - E78.5) 12/29/2024 COREY (generalized anxiety disorder) (ICD-10 - F41.1) 08/18/2024 COREY (generalized anxiety disorder) (ICD-10 - F41.1) Client doing well on current tx plan and does not want changes at this time. 08/18/2024 Vitamin D deficiency (ICD-10 - E55.9) Client doing well on current tx plan and does not want changes at this time. 03/12/2024 COREY (generalized anxiety disorder) (ICD-10 - [...] call for earlier f/u if needed. 06/17/2024 Chronic fatigue (ICD-10 - R53.82) Client [...] provider will write for yearly blood work. 08/13/2024 Nicotine dependence, unspecified, uncomplicated (ICD-10 - F17.200) 01/06/2025 Iron deficiency anemia (ICD-10 - D50.9) 08/13/2024 Dietary counseling (ICD-10 - Z71.3) 08/18/2024 Chronic fatigue (ICD-10 - R53.82) Client doing well on current tx plan and does not want changes at this time. 01/06/2025 Proteinuria of undiagnosed cause (ICD-10 - R80.9) 01/06/2025 Glycosuria (ICD-10 - R81) 08/13/2024 Nutritional counseling (ICD-10 - Z71.3) 03/12/2024 Other Discussed sleep hygiene and caffeine [...] number to the 24-hour crisis line at [facility]. Questions addressed. Client verbalized understanding of all [...] number to the 24-hour crisis line at [facility]. Questions addressed. Client verbalized understanding of all [...] number to the 24-hour crisis line at [facility]. Questions addressed. Client verbalized understanding of all information and is agreeable to treatment plan. Client doing well on current tx plan and does not want changes at this time. 12/29/2024 Other Discussed sleep hygiene and caffeine intake [...] number to the 24-hour crisis line at [facility]. Questions addressed. Client verbalized understanding of all information and is agreeable to treatment plan. 01/06/2025 Other ENCOURAGED HEALTHY DIET, EXERICSE, GOAL WT ABOUT 150 POUNDS. Plan Of Treatment Pending Test Test Name Order Date AST (SGOT) 02/08/2016 Future Test Test Name Order Date Vitamin B12 and Folate 01/06/2025 Iron and TIBC* 01/06/2025 Hemoglobin A1c* 01/06/2025 CBC With Differential/Platelet* 01/07/20 25 Lipid Panel* 01/06/2025 CMP 14 Comprehensive Metabolic Panel* TSH Rfx on Abnormal to Free T4 5 UA/M w/rflx Culture, Routine 01/06/2025 Insurance Providers Payer Name Payer Address Payer Phone Subscriber Number Group Number Insured Name Patient Relationship to Insured Coverage Start Date Coverage End Date [facility] Claims Department [address] [place] [phone] [id number] Marlene Worley Self - patient is the insured 1 [facility] Claims Department [address] [place] [phone] [id number] Marlene Worley Self - patient is the insured 6 8 [place] [employer] [facility] Claims Department [address] [phone] [id number] Marlene Worley Self - patient is the insured 8 8 MEDICAID [address] [place] [address] [id number] Marlene Worley Self - patient is the insured 8 9 [place] [facility] [address] [address] [id number] Marlene Worley Self - patient is the insured 0 [facility] Claims Department [address] [place] [phone] [id number] Marlene Worley Self - patient is the insured 1 Medical (General) History Medical History History ICD Code MDD (major depressive disorder) Obesity (BMI 30.0-34.9) Vitamin D deficiency Anxiety disorder, unspecified type Surgical History Surgery Date(Month/Year) cholestyectomy 02/2020 Hospitalization History Reason Date(Month/Year) [facility] for anxiety 2000
--- OUTSIDE RECORDS SUMMARY | 2025-01-20 13:25 | XMS_ITS | Clinical Summary ---
Author Organization [facility] Address [address] [place] [address] Care Team Providers Care Inside Sales Director Name Role Phone Marbin Torrez MD Primary Care Provider [phone] Allergies No known active allergies Medications gabapentin (NEURONTIN) 300 mg capsule 600 mg in the am 300 mg in the evening 09/23/2019 Active atorvastatin (LIPITOR) 40 mg tablet Take 1 tablet (40 mg total) by mouth daily 07/24/2024 Active buPROPion XL (WELLBUTRIN XL) 300 mg 24 hr tablet Take 1 tablet (300 mg total) by mouth daily Active diazePAM (VALIUM) 5 mg tablet Take 1 tablet (5 mg total) by mouth every 6 (six) hours as needed 07/28/2024 Active isosorbide mononitrate ER (IMDUR) 30 mg 24 hr tablet Take 1 tablet (30 mg total) by mouth daily 07/24/2024 Active phentermine 37.5 mg capsule Take 1 capsule (37.5 mg total) by mouth daily 09/16/2024 Active desvenlafaxine ER 50 mg 24 hr tablet Take 1 tablet (50 mg total) by mouth every morning Active aspirin 81 mg enteric coated tablet Take 1 tablet (81 mg total) by mouth daily 07/24/2024 Active Active Problems Problem Noted Date Diagnosed Date Family hx of colon cancer 10/02/2019 Overview (10/02/2019): Added automatically from request for surgery [id number] Surgical History Surgery Date Site/Laterality Comments SECTION x3 CHOLECYSTECTOMY WISDOM TOOTH EXTRACTION Medical History Medical History Date Comments Mass of colon with bleeding Depression Family History Medical History Relation Name Comments COPD Father Prostate cancer Father Diabetes Mother Heart disease Mother Hypertension Mother Relation Name Status Comments Father Mother Alive Social History Tobacco Use Types Packs/Day Years Used Date Smoking Tobacco: Some Days Cigarettes Tobacco Cessation:Ready to Q uit: Not Asked; Counseling Given: Not Answered AUDIT-C Answer Date Recorded Q1: How often [...] 1:20 PM CDT Height 162.6 cm (5' 4) 09/19/2022 1:20 PM CDT Body Mass Index 28.32 09/19/2022 1:20 PM CDT Plan of Treatment Health Maintenance Due Date Last Done Comments Breast Cancer Screening-Mammogram 1984 Cervical Cancer Screening 1984 Depression Screening 1984 Hepatitis C Screening 1984 Varicella Vaccines (1 of 2 - 13+ 2-dose series) 1997 Hepatitis B Screening 2002 Regular Well Visit/Exam 18-64 2002 Pneumococcal vaccine <65 (1 of 2 - PCV) 08/13/2003 HPV Vaccines (1 - 3-dose SCDM series) 08/13/2011 DTaP/Tdap/Td Vaccine (2 - Td or Tdap) 03/24/2024 Influenza Vaccine (#1) 2025 Insurance [facility] [address] Care Teams Inside Sales Director Relationship Specialty Start Date End Date Marbin Torrez MD [address] [place] [address] PCP - General Internal Medicine 09/20/22
== END 2025-01-20 13:23 | disposition home or self-care (01) ==
LOC: ANHIMG 13:23
PROVIDERS: PCP Internal Medicine; Visit Provider Student in an Organized Health Care Education/Training Program
DX: R92.8 Other abnormal and inconclusive findings on diagnostic imaging of breast (principal)
CPT/HCPCS: 76642; 77061; 77065; G0279

== ENCOUNTER 2025-01-20 14:33 | Outpatient (CLI) | payer OTHER, SELFPAY ==
--- OUTSIDE RECORDS SUMMARY | 2025-01-20 14:36 | XMS_ITS | Clinical Summary ---
Author Organization [facility] Address [address] [facility] [place] [address] Care Team Providers Care Manager Employment Name Role Phone Unavailable Primary Care Provider Unavailabl e Source Comments [facility],non-owned Affiliates and Associated Physician Practices is amultiple site organization consisting of ambulatory clinics and hospital sitesin [place], [place], [place] and [place]. This disclosure is being madepursuant to the Care Everywhere program and may not contain all information available regarding this patient. 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 Gender Identity Not on file Sexual Orientation [...] patient's age to complete this topic Insurance [facility] SELF PAY NO INSURANCE Member Subscriber Plan / Payer (Ef fective for All Dates) Name:Marlene Munoz R Member ID:Not on file Relation to Subscriber:Not on file Name:MUNOZMARLENE Subscriber ID:Not on file (Home) Address: [address] [place] [address] Payer ID:Not on file Group ID:Not on file Type:Self Pay Address: [place], [place] [facility] SELF PAY NO INSURANCE Member Subscriber Plan / Payer (Ef fective for All Dates) Name:MunozMarlene haas R Member ID:Not on file Relation to Subscriber:Not on file Name:MARLENE MUNOZ Subscriber ID:Not on file (Home) Address: [address] [place] [address] Payer ID:Not on file Group ID:Not on file Type:Self Pay Address: [place], [place] [facility] SELF PAY NO INSURANCE Member Subscriber Plan / Payer (Ef fective for All Dates) Name:Marlene Munoz Member ID:Not on file Relation to Subscriber:Not on file Name:MARLENE MUNOZ Subscriber ID:Not on file (Home) Address: [address] [place] [address] Payer ID:Not on file Group ID:Not on file Type:Self Pay Address: [place], [place]
--- OUTSIDE RECORDS SUMMARY | 2025-01-20 14:36 | XMS_ITS | Continuity of Care Document ---
Author Organization [facility] Address [address] [place] [address] [address] [place] [address] Phone Care Team Providers Care Biology Specimen Technician Name Role Phone [facility] Unavailable Unavail able Dallas Brock Unavailable Unavailable Advance Directives Directive Yes / No Effective Date File Name No Information Encounters Encounter Description Practice Location Reason(s) For Visit Diagnoses Date Provider Providers Copied on Encounter [facility], [address], [place], [place], [id number], [place] tel:[phone] [facility] No Information [facility] [address] [facility], [address], [place], [place], [address] , [place]. tel:[phone] Referring Provider: Jed Mojica, [address] [place] [address] [address], [place], [address]. tel:[phone] sulting Provider: Dallas Brock, [address] [place] [address], [place], [address]. tel:[phone] Family History Family Member Type Diagnosis Age [...]
--- OUTSIDE RECORDS SUMMARY | 2025-01-20 14:36 | XMS_ITS | Clinical Summary ---
Author Organization [facility] Address [address] [place] [address] Care Team Providers Care Station Chief Name Role Phone Marbin Torrez MD Primary Care Provider [phone] Allergies No known active allergies Medications gabapentin [...] (10/02/2019): Added automatically from request for surgery [id number] Surgical History Surgery Date Site/Laterality Comments SECTION [...] Tdap) 03/24/2024 Influenza Vaccine (#1) 2025 Insurance [facility] [address] Care Teams Station Chief Relationship Specialty Start Date End Date Marbin Torrez MD [address] [place] [address] PCP - General Internal Medicine 09/20/22
[2025-01-20 14:58] LABS: Add Urine Microscopic? NO; Appearance Urine Clear (Clear); Glucose Urine UA Negative (Negative); Hematocrit 33.4 % (37.0-47.0); Hemoglobin 10.2 g/dL (12.0-15.0); Immature Granulocyte Percent A 0.3 % (0-0.5); Leukocyte Esterase Ur Negative LEU/UL (Negative); Lymphocytes Absolute Auto 2.00 K/mm3 (0.9-3.2); Mean Corpuscular HGB Conc 30.5 g/dl (32-36); Mean Corpuscular Hemoglobin 25.8 pg (26-34); Mean Corpuscular Volume 84.6 fl (80-100); Nitrate Urine Negative (Negative); Nucleated Red Blood Cells Absolute Auto 0.000 K/mm3 (0.0-0.012); Nucleated Red Blood Cells Perc 0.0 % (0.0-0.2); Platelet Count Result 352 k/mm3 (150-375); Red Blood Count 3.95 M/mm3 (4.2-5.4); Specific Grav Ur 1.008 (1.001-1.035); White Blood Count 7.6 K/mm3 (4.5-10.0)
[2025-01-20 16:42] LABS: Iron 23 ug/dL (37-170)
[2025-01-20 16:51] LABS: Percent Iron Saturation 5 % (20-50)
[2025-01-20 16:58] LABS: Alanine Aminotransferase 25 U/L (6-35); Albumin Level 4.2 g/dL (3.5-5.1); Alkaline Phosphatase 89 U/L (38-126); Anion Gap 6 mmol/L (4-12); Aspartate Amino Transferase 34 U/L (14-36); Bilirubin,Total 0.3 mg/dL (0.2-1.3); Blood Urea Nitrogen 7 mg/dL (7-17); Calcium 9.3 mg/dL (8.4-10.2); Carbon Dioxide 28 mmol/L (22-30); Chloride 104 mmol/L (98-107); Cholesterol 137 mg/dL (0-200); Estimated Glomerular Filt Rate > 60; Glucose 98 mg/dL (65-110); HDL Direct 53 mg/dL; Potassium 4.6 mmol/L (3.4-5.0); Sodium 138 mmol/L (137-145); Total Protein 7.2 g/dL (6.3-8.2); Triglycerides 85 mg/dL (<150)
[2025-01-20 17:01] LABS: Hemoglobin A1C 5.6 % (<5.7)
[2025-01-20 17:15] LABS: Thyroid Stimulating Hormone Reflex 0.939 uIU/mL (0.465-4.68)
[2025-01-20 18:11] LABS: Vitamin B12 673.0 pg/mL (239-931)
== END 2025-01-20 14:34 | disposition home or self-care (01) ==
LOC: ANHLAB 14:34
PROVIDERS: PCP Internal Medicine; Visit Provider Internal Medicine
DX: D50.9 Iron deficiency anemia, unspecified (principal); R81 Glycosuria; E78.5 Hyperlipidemia, unspecified; K59.09 Other constipation
CPT/HCPCS: 36415; 80053; 80061; 81003; 82607; 82746; 83036; 83540; 83550; 84443; 85025